=== PATIENT | male | born 1985 | race Caucasian/White ===

== ENCOUNTER 2017-06-01 09:51 | Outpatient (CLI) | payer BC ==
--- NOTE | 2017-06-01 11:40 | RAD ---
GASTROGRAFIN UPPER GI: History: Epigastric pain. Nausea and vomiting. Dysphasia. Patient has had previous bariatric surgery. 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 Patient was administered Gastrografin which passes from the esophagus into the stomach. There is a pe rsistent filling defect and narrowing of the midportion of the stomach, similar in location to the pr evious examination. Despite narrowing, there is eventual passage of Gastrografin beyond this narrowin g into the distal stomach and small bowel. Exposure: 1.1 minutes, 77.7 mGy*cm^2. IMPRESSION: Persistent narrowing along the midportion of the stomach POS: [facility]
[2017-06-01] MEDS ORDERED: MD-Gastroview 120 ML BOT ONE (15:33)
== END 2017-06-01 09:52 | disposition home or self-care (01) ==
LOC: RAD 09:51
PROVIDERS: ATTEND Internal Medicine Gastroenterology
DX: K30 Functional dyspepsia (principal); E66.9 Obesity, unspecified; R11.0 Nausea; R11.2 Nausea with vomiting, unspecified; R13.10 Dysphagia, unspecified; R93.3 Abnormal findings on diagnostic imaging of other parts of digestive tract; Z98.84 Bariatric surgery status
CPT/HCPCS: 74241

== ENCOUNTER 2017-11-01 08:46 | Emergency (ER) | payer BC ==
[2017-11-01] MEDS ORDERED: Lidocaine 1% w/Epinephrine 1:100K 30 ML VIAL ONE (09:10)
[2017-11-01] MEDS ORDERED: Bacitracin Zinc 1 Packet ONE (09:54)
== END 2017-11-01 10:18 | disposition home or self-care (01) ==
LOC: SCSER 08:46
DX: S01.511A Laceration without foreign body of lip, initial encounter (principal); W22.8XXA Striking against or struck by other objects, initial encounter
CPT/HCPCS: 12011; J2001

== ENCOUNTER 2019-07-11 11:54 | Outpatient (CLI) | payer OTHER ==
--- NOTE | 2019-07-11 13:07 | RAD ---
MRI SAFETY VELASUQEZ SINUSES: Date: 07/11/19 PROVIDED CLINICAL HISTORY: History of metal in eye. FINDINGS: Single frontal view of the orbits was obtained for the exclusion of metallic foreign body in the [place] on of the orbits. There is no evidence for such. IMPRESSION: As above. POS: OFF
--- NOTE | 2019-07-11 14:13 | MRI ---
MRI OF LEFT SHOULDER PERFORMED WITHOUT CONTRAST ENHANCEMENT: HISTORY: Left shoulder injury. FINDINGS: There is mild arthrosis of the AC joint. There is an os acromiale present. The supra- as well as infraspinatus tendons are intact. The subscapularis tendon shows a partial undersurface tear of the superior fibers. This is associate d with a biceps tendon tear which is probably complete. There is increased signal change associated with what appeared to be some minimal fibers that are still present in the bicipital groove. The lar lluvia portion of the tendon appears to be retracted below the level of the bicipital groove. There is a joint effusion noted. The superior labrum showed some increased signal change. This is difficult to assess due to signal to noise ratio, but it is blunt and truncated in appearance. IMPRESSION: 1. No evidence of supra- and infraspinatus tendon tear. 2. Os acromiale. 3. Biceps tendon tear which appears to be high-grade to probably a complete tear with tendon retract ed to slightly below the level of the bicipital groove. There are some thin fibers seen within the b icipital groove which probably represent some remnants of the tendon. The superior labrum is slightl y irregular in appearance. POS: [facility]
== END 2019-07-11 11:55 | disposition home or self-care (01) ==
LOC: BICMRI 11:54
PROVIDERS: ATTEND Family Medicine
DX: S49.92XA Unspecified injury of left shoulder and upper arm, initial encounter (principal); S46.212A Strain of muscle, fascia and tendon of other parts of biceps, left arm, initial encounter; M89.8X1 Other specified disorders of bone, shoulder
CPT/HCPCS: 70210

== ENCOUNTER 2021-05-19 06:54 | Outpatient (CLI) | payer SELFPAY ==
[2021-05-19 09:10] LABS: #Basophils 0.1 10x3/uL (0.0-0.2); #Eosinphils 0.1 10x3/uL (0.0-0.5); #Monocytes 0.5 10x3/uL (0.0-1.1); #Neutrophils 2.2 10x3/uL (1.5-8.4); %Basophils 1.5 % (0.0-2.0); %Eosinophils 3.1 % (0.0-6.0); %Lymphocytes 30.3 % (18.0-47.0); %Monocytes 11.6 % (0.0-10.0); %Neutrophils 53.5 % (40.0-75.0); Hemoglobin 14.3 g/dL (13.5-17.5); Mean Corpuscular HGB CONC 32.2 g/dL (32.0-36.0); Mean Corpuscular Hemoglobin 29.2 pg (27.0-33.0); Mean Corpuscular Volume 90.8 fl (81.2-95.1); Mean Platelet Volume 9.9 fl (7.4-10.4); Platelet Count 236 10x3/uL (150-450); RBC Distribution Width 12.5 % (11.5-14.5); Red Blood Cell (RBC) Count 4.89 10x6/uL (4.32-5.72); White Blood Cell (WBC) Count 4.1 10x3/uL (3.5-10.5)
[2021-05-19 09:40] LABS: ALT (SGPT) 17 U/L (8-55); AST (SGOT) 16 U/L (5-34); Albumin 4.6 g/dL (3.5-5.0); Alkaline Phosphatase 61 U/L (40-110); Anion Gap 13 mmol/L (10-20); BUN (Urea Nitrogen) 11 mg/dL (8.9-20.6); Bilirubin, Total 1.3 mg/dL (0.2-1.2); Calc. Creatinine Clearance 0 mL/min (70-130); Calcium 9.7 mg/dL (7.8-10.44); Carbon Dioxide 28 mmol/L (22-29); Chloride 105 mmol/L (98-107); Globulin 2.7 g/dL (2.4-3.5); Glucose 79 mg/dL (70-105); Potassium 4.8 mmol/L (3.5-5.1); Protein, Total 7.3 g/dL (6.0-8.3); Sodium 141 mmol/L (136-145)
[2021-05-19 11:09] LABS: Hemoglobin A1c 4.8 % (4.0-6.0)
[2021-05-19 17:08] LABS: SARS-CoV-2 PCR by NAA Not Detected (NotDetected)
== END 2021-05-19 06:55 | disposition home or self-care (01) ==
LOC: LABBT 06:54
PROVIDERS: ATTEND Surgery
DX: Z01.818 Encounter for other preprocedural examination (principal); K31.1 Adult hypertrophic pyloric stenosis; Z20.822 Contact with and (suspected) exposure to COVID-19
CPT/HCPCS: 80053; 83036; 85025; 93005; 93010; U0003; U0005

== ENCOUNTER 2021-05-24 09:29 | Inpatient (IN) | payer OTHER ==
[2021-05-24] MEDS ORDERED: Scopolamine 1.5 mg/72 hour Patch ONE (10:23)
[2021-05-24] MEDS ORDERED: Fentanyl 250 MCG/5 ML VIAL ONE (11:13)
[2021-05-24] MEDS ORDERED: SUGAMMADEX SODIUM 200 MG/2 ML VIAL ONE (11:13)
[2021-05-24] MEDS ORDERED: Bupivacaine 0.25% HCL 30 ML VIAL ONE (11:15)
[2021-05-24] MEDS ORDERED: Lidocaine 1% w/Epinephrine 1:100K 20 ML VIAL ONE (11:15)
[2021-05-24] MEDS ORDERED: Midazolam HCl 2 mg/2 ml Vial ONE (11:26)
[2021-05-24] MEDS ORDERED: Esmolol 100 MG/10 ML VIAL ONE (11:41)
[2021-05-24] MEDS ORDERED: Rocuronium Bromide 10 MG/ML (10ML VIAL) ONE (11:41)
[2021-05-24] MEDS ORDERED: PROPOFOL 200 MG/20 ML VIAL ONE (11:41)
[2021-05-24] MEDS ORDERED: PHENYLEPHRINE-NS 100 MCG/ML 10 ML SYRINGE ONE (11:41)
[2021-05-24] MEDS ORDERED: Lidocaine 1% PF 5 ML VIAL ONE (11:41)
[2021-05-24] MEDS ORDERED: Dexamethasone 20 MG/5 ML VIAL ONE (11:41)
[2021-05-24] MEDS ORDERED: Succinylcholine 200 MG/10 ml SYRINGE FS ONE (11:41)
[2021-05-24] MEDS ORDERED: Glycopyrrolate 0.2 MG/ML 5 ML SYRINGE ONE (11:41)
[2021-05-24] MEDS ORDERED: Fentanyl 100 MCG/2 ML VIAL ONE (15:22)
[2021-05-24] MEDS ORDERED: hydrALAZINE 20 MG/ML VIAL SLOW IVP PRN (15:31)
[2021-05-24] MEDS ORDERED: Dextrose 5% in Water 1,000 ML IV PRN (15:31)
[2021-05-24] MEDS ORDERED: Hydrocodone-Acetamin 15 ML UDCUP PO PRN (15:31)
[2021-05-24] MEDS ORDERED: Ondansetron PF 4 MG/2 ML Vial IVP PRN ×2 (15:31→15:45)
[2021-05-24] MEDS ORDERED: Dextrose 50% Abboject 50 ML SYRINGE SLOW IVP PRN (15:31)
[2021-05-24] MEDS ORDERED: Promethazine HCl 25 MG/ML VIAL IM PRN ×2 (15:31→15:45)
[2021-05-24] MEDS ORDERED: diphenhydrAMINE 50 MG/ML VIAL IVP PRN (15:31)
[2021-05-24] MEDS ORDERED: Promethazine HCl 25 MG/ML VIAL IM/IV PRN (15:45)
[2021-05-24] MEDS ORDERED: diphenhydrAMINE 25 MG CAP PO PRN (15:45)
[2021-05-24] MEDS ORDERED: Zolpidem Tartrate 5 MG TAB PO PRN (15:45)
[2021-05-24] MEDS ORDERED: Naloxone HCl 0.4 mg/ml Vial IV PRN (15:45)
[2021-05-24] MEDS ORDERED: Fentanyl CADD 100 ML IVPB SCH (15:45)
[2021-05-24] MEDS ORDERED: diphenhydrAMINE 50 MG/ML VIAL IM/IV PRN (15:45)
[2021-05-24] MEDS ORDERED: Ondansetron HCl/PF 4 MG/2 ML Vial IVP PRN (15:45)
[2021-05-24] MEDS ORDERED: Promethazine HCl 25 MG/ML VIAL ONE (15:51)
[2021-05-24] MEDS: D5 1/2 NS w/20 mEq KCL 1,000 ML IV SCH (19:35)
[2021-05-24] MEDS: Gabapentin 400 MG CAP PO SCH (20:38)
[2021-05-24 20:46] VITALS: BMI 29.7
[2021-05-25] MEDS: D5 1/2 NS w/20 mEq KCL 1,000 ML IV SCH ×4 (01:38→23:09)
[2021-05-25 06:17] LABS: #Lymphocytes 0.6 thou/uL (1.20-3.40); #Neutrophils 6.7 thou/uL (1.40-6.50); %Basophils 0.5 % (0.0-1.0); %Eosinophils 0.2 % (0.0-10.0); %Lymphocytes 7.5 % (21.0-51.0); %Monocytes 11.7 % (0.0-10.0); %Neutrophils 80.1 % (42.0-75.0); Hemoglobin 12.3 g/dL (14.0-18.0); Mean Corpuscular HGB CONC 32.5 g/dL (32.0-36.0); Mean Corpuscular Hemoglobin 29.8 pg (27.0-31.0); Mean Corpuscular Volume 91.9 fL (78.0-98.0); Mean Platelet Volume 6.9 fL (7.4-10.4); Platelet Count 220 thou/uL (130-400); RBC Distribution Width 11.5 % (11.5-14.5); Red Blood Cell (RBC) Count 4.11 mill/uL (4.70-6.10); White Blood Cell (WBC) Count 8.3 thou/uL (4.8-10.8)
[2021-05-25 06:38] LABS: Anion Gap 11 mmol/L (10-20); BUN (Urea Nitrogen) 10 mg/dL (8.9-20.6); Calc. Creatinine Clearance 137 mL/min (70-130); Calcium 9.1 mg/dL (7.8-10.44); Carbon Dioxide 29 mmol/L (22-29); Chloride 102 mmol/L (98-107); Glucose 128 mg/dL (70-105); Sodium 137 mmol/L (136-145)
[2021-05-25] MEDS: Gabapentin 400 MG CAP PO SCH ×3 (09:50→20:02)
[2021-05-25] MEDS ORDERED: Hydrocodone-Acetamin 15 ML UDCUP PO PRN (10:01)
[2021-05-25] MEDS ORDERED: Fentanyl 100 MCG/2 ML VIAL SLOW IVP PRN (10:02)
[2021-05-25] MEDS: Pantoprazole 40 MG VIAL IVP SCH (10:10)
[2021-05-25] MEDS: Enoxaparin Sodium 40 MG/0.4 ML SYRINGE SC SCH (10:10)
[2021-05-25] MEDS: Fentanyl 100 MCG/2 ML VIAL SLOW IVP PRN ×3 (15:13→20:03)
[2021-05-25] MEDS ORDERED: Fentanyl CADD 100 ML IVPB SCH (20:30)
[2021-05-25] MEDS: Ketorolac Tromethamine 30 MG/ML VIAL IVP SCH (20:32)
[2021-05-26] MEDS: Ketorolac Tromethamine 30 MG/ML VIAL IVP SCH ×2 (05:05→13:00)
[2021-05-26] MEDS: D5 1/2 NS w/20 mEq KCL 1,000 ML IV SCH (06:59)
[2021-05-26] MEDS: Gabapentin 400 MG CAP PO SCH (10:22)
[2021-05-26] MEDS: Enoxaparin Sodium 40 MG/0.4 ML SYRINGE SC SCH ×2 (10:23→10:25)
[2021-05-26] MEDS: Pantoprazole 40 MG VIAL IVP SCH (10:23)
[2021-05-26 12:22] VITALS: BP 123/77; TEMP 97.9
== END 2021-05-26 14:09 | disposition home or self-care (01) | DRG 328 ==
LOC: SDC 09:29 → SURG A 15:31
PROVIDERS: ADMIT Surgery; ATTEND Surgery
PROC: 0D164ZA Bypass Stomach to Jejunum, Percutaneous Endoscopic Approach (ICD-10-PCS; principal; 2021-05-24)
PROC: 0DB64ZZ Excision of Stomach, Percutaneous Endoscopic Approach (ICD-10-PCS; 2021-05-24)
PROC: 8E0W4CZ Robotic Assisted Procedure of Trunk Region, Percutaneous Endoscopic Approach (ICD-10-PCS; 2021-05-24)
DX: K31.1 Adult hypertrophic pyloric stenosis (principal); K20.90 Esophagitis, unspecified without bleeding; K44.9 Diaphragmatic hernia without obstruction or gangrene; F41.9 Anxiety disorder, unspecified; M19.90 Unspecified osteoarthritis, unspecified site; Z82.49 Family history of ischemic heart disease and other diseases of the circulatory system; Z83.3 Family history of diabetes mellitus; Z80.9 Family history of malignant neoplasm, unspecified; Z79.899 Other long term (current) drug therapy
CPT/HCPCS: 36415; 80048; 85025; 88307; C9113; J0690; J1100; J1650; J1885; J2250; J2405; J2550; J2704; J3010; J3480; S0020

== ENCOUNTER 2022-08-25 07:59 | Outpatient (CLI) | payer OTHER | END 2022-08-25 08:00 | disposition home or self-care (01) | LOC: ULT 07:59 | PROVIDERS: ATTEND Internal Medicine Gastroenterology | DX: R10.13 Epigastric pain (principal); R10.11 Right upper quadrant pain | CPT/HCPCS: 76705 ==